=== PATIENT | male | born 1970 | race Two or more races ===

== ENCOUNTER 2021-10-22 21:16 | Inpatient (IN) ==
[~2021-10-22 21:16] MED LIST: NITROGLYCERIN SL 0.4 MG TABLET SL ONE
[2021-10-22] MEDS ORDERED: TICAGRELOR 90 MG TABLET PO STA (21:18)
[2021-10-22] MEDS ORDERED: HEPARIN 5,000 UNIT/1 ML VIAL IV ONE (21:18)
[2021-10-22] MEDS ORDERED: MORPHINE 2 MG/1 ML SYRINGE ONE (21:21)
[2021-10-22] MEDS ORDERED: NITROGLYCERIN DRIP 50 MG/250 ML BOTTLE IV ONE (21:21)
[2021-10-22] MEDS ORDERED: HEPARIN 5,000 UNIT/1 ML VIAL ONE (21:21)
[2021-10-22] MEDS: MORPHINE 2 MG/1 ML SYRINGE IV PRN ×2 (21:26→21:32)
[2021-10-22] MEDS ORDERED: NITROGLYCERIN DRIP 50 MG/250 ML BOTTLE IV SCH (21:30)
[2021-10-22 21:37] LABS: Basophils # 0.1 10*3/uL (0.0-0.2); Basophils % 0.6 % (0.0-0.8); Eosinophils # 0.6 10*3/uL (0.0-0.87); Eosinophils % 4.4 % (0.00-10.9); Hematocrit 44.9 VOL% (42.0-52.0); Hemoglobin 15.5 GM/DL (14.0-18.0); Immature Granulocytes % 0.5 %; Immature Granulocytes Absolute 0.07 #; Lymphocytes # 4.3 10*3/uL (1.4-4.0); Lymphocytes % 32.8 % (21.2-54.2); Mean Corpuscular HGB Conc 34.5 GM/DL (32-36); Mean Corpuscular Volume 94.7 FL (87-102); Mean Platelet Volume 11.7 FL (9.6-12.0); Monocytes % 9.9 % (1.7-12.7); Neutrophils % 51.8 % (38.7-73.9); Platelet Count 256 T/CUMM (130-400); Red Blood Count 4.74 MC/CUMM (3.8-5.5); Red Cell Distribution Width 11.4 % (9.3-17.3); White Blood Count 13.1 T/CUMM (4-12)
[2021-10-22] MEDS ORDERED: MIDAZOLAM 2 MG/2 ML VIAL ONE (21:43)
[2021-10-22] MEDS ORDERED: fentaNYL 100 MCG/2 ML VIAL ONE (21:43)
[2021-10-22] MEDS ORDERED: LIDOCAINE 1% 20 ML VIAL ONE (21:43)
[2021-10-22 21:46] LABS: INR 0.9; PT Patient Result 10.4 SECS (10.5-12.0)
[2021-10-22] MEDS ORDERED: ENOXAPARIN 60 MG/0.6 ML SYRINGE ONE (21:59)
[2021-10-22] MEDS ORDERED: EPTIFIBATIDE 75 MG/100 ML BOTTLE IV SCH (22:01)
[2021-10-22 22:11] LABS: Bilirubin,Total 0.4 MG/DL (0.20-1.00); Calcium 9.3 MG/DL (8.5-10.1); Osmolality,Calculated 287.5 MOS/KG (273-304); Potassium 4.6 MMOL/L (3.5-5.1)
[2021-10-22] MEDS ORDERED: HYDROmorphone 2 MG/1 ML VIAL ONE (22:49)
[2021-10-22] MEDS ORDERED: ZALEPLON 5 MG CAPSULE PO PRN (23:00)
[2021-10-22] MEDS ORDERED: GLUCAGON 1 MG VIAL IM PRN (23:00)
[2021-10-22] MEDS ORDERED: NITROGLYCERIN SL 0.4 MG TABLET SL PRN (23:00)
[2021-10-22] MEDS ORDERED: SODIUM CHLORIDE 0.9% 1,000 ML IV SCH (23:00)
[2021-10-22] MEDS ORDERED: ACETAMINOPHEN 325 MG TABLET PO PRN (23:00)
[2021-10-22] MEDS ORDERED: ONDANSETRON 4 MG/2 ML VIAL IV PRN (23:00)
[2021-10-22] MEDS ORDERED: ALUMINUM/MAGNES/SIMETH MAX STR 30 ML UDCUP PO PRN (23:13)
[2021-10-22] MEDS ORDERED: DEXTROSE 50% 25 GM/50 ML SYRINGE IV PRN (23:24)
[2021-10-23] MEDS: HYDROmorphone 2 MG/1 ML VIAL IV SCH ×4 (01:29→07:20)
[2021-10-23 05:38] LABS: Basophils # 0.1 10*3/uL (0.0-0.2); Basophils % 0.6 % (0.0-0.8); Eosinophils # 0.2 10*3/uL (0.0-0.87); Eosinophils % 1.5 % (0.00-10.9); Hematocrit 40.4 VOL% (42.0-52.0); Hemoglobin 14.1 GM/DL (14.0-18.0); Immature Granulocytes % 0.4 %; Immature Granulocytes Absolute 0.05 #; Lymphocytes # 3.1 10*3/uL (1.4-4.0); Lymphocytes % 26.2 % (21.2-54.2); Mean Corpuscular HGB Conc 34.9 GM/DL (32-36); Mean Corpuscular Volume 96.9 FL (87-102); Mean Platelet Volume 12.5 FL (9.6-12.0); Monocytes % 10.3 % (1.7-12.7); Platelet Count 225 T/CUMM (130-400); Red Blood Count 4.17 MC/CUMM (3.8-5.5); Red Cell Distribution Width 11.7 % (9.3-17.3); White Blood Count 11.7 T/CUMM (4-12)
[2021-10-23 07:23] LABS: Albumin 3.3 G/DL (3.4-5.0); Bilirubin,Total 1.4 MG/DL (0.20-1.00); CKMB % 7.6 %; Calcium 8.2 MG/DL (8.5-10.1); Osmolality,Calculated 281.8 MOS/KG (273-304); Potassium 4.2 MMOL/L (3.5-5.1); Risk Ratio 8.46; VLDL Cholesterol 175.6 MG/DL
[2021-10-23 07:28] LABS: High Sensitive Troponin I* 12311.1 ng/L (0-78)
[2021-10-23] MEDS: INSULIN REGULAR 100 UNIT/ML SUBCUT SCH ×4 (07:32→21:00)
[2021-10-23] MEDS: HYDROmorphone 2 MG/1 ML VIAL IV PRN ×3 (07:39→21:01)
[2021-10-23] MEDS: PANTOPRAZOLE 40 MG TABLET PO SCH (08:26)
[2021-10-23] MEDS: carvediloL 6.25 MG TABLET PO SCH ×2 (08:26→21:01)
[2021-10-23] MEDS: lisinopriL 10 MG TABLET PO SCH (08:26)
[2021-10-23] MEDS: ASPIRIN EC 81 MG TABLET PO SCH (08:26)
[2021-10-23] MEDS ORDERED: CLOPIDOGREL 300 MG TABLET PO ONE (08:46)
[2021-10-23] MEDS ORDERED: lisinopriL 10 MG TABLET PO SCH (09:00)
[2021-10-23] MEDS ORDERED: TICAGRELOR 90 MG TABLET PO SCH (09:00)
[2021-10-23 10:12] LABS: Barbiturates Screen,Urine Negative (Negative); Benzodiazepines Screen,Urine Positive (Negative); Cannabinoid Screen,Urine Negative (Negative); Opiate Screen,Urine Positive (Negative); Phencyclidine Screen,Urine Negative (Negative)
[2021-10-23] MEDS: glyBURIDE 5 MG TABLET PO SCH (16:28)
[2021-10-23] MEDS: ROSUVASTATIN 20 MG TABLET PO SCH (21:01)
[2021-10-24 03:03] LABS: Basophils # 0.1 10*3/uL (0.0-0.2); Basophils % 0.6 % (0.0-0.8); Eosinophils # 0.4 10*3/uL (0.0-0.87); Eosinophils % 3.8 % (0.00-10.9); Hematocrit 40.2 VOL% (42.0-52.0); Hemoglobin 13.8 GM/DL (14.0-18.0); Immature Granulocytes % 0.5 %; Immature Granulocytes Absolute 0.06 #; Lymphocytes # 2.7 10*3/uL (1.4-4.0); Lymphocytes % 23.9 % (21.2-54.2); Mean Corpuscular HGB Conc 34.3 GM/DL (32-36); Mean Corpuscular Volume 96.2 FL (87-102); Mean Platelet Volume 11.4 FL (9.6-12.0); Monocytes % 11.6 % (1.7-12.7); Neutrophils % 59.6 % (38.7-73.9); Platelet Count 192 T/CUMM (130-400); Red Blood Count 4.18 MC/CUMM (3.8-5.5); Red Cell Distribution Width 11.3 % (9.3-17.3); White Blood Count 11.2 T/CUMM (4-12)
[2021-10-24 03:20] LABS: Calcium 8.1 MG/DL (8.5-10.1); Potassium 4.2 MMOL/L (3.5-5.1)
[2021-10-24] MEDS: INSULIN REGULAR 100 UNIT/ML SUBCUT SCH ×3 (07:58→16:42)
[2021-10-24] MEDS: glyBURIDE 5 MG TABLET PO SCH ×2 (07:59→16:42)
[2021-10-24] MEDS: carvediloL 6.25 MG TABLET PO SCH ×2 (08:00→22:46)
[2021-10-24] MEDS: ASPIRIN EC 81 MG TABLET PO SCH (08:00)
[2021-10-24] MEDS: CLOPIDOGREL 75 MG TABLET PO SCH (08:00)
[2021-10-24] MEDS: PANTOPRAZOLE 40 MG TABLET PO SCH (08:01)
[2021-10-24] MEDS: lisinopriL 10 MG TABLET PO SCH (08:01)
[2021-10-24] MEDS: MAGNESIUM CHLORIDE 64 MG TABLET PO SCH ×2 (08:03→22:45)
[2021-10-24] MEDS ORDERED: FUROSEMIDE 20 MG TABLET PO ONE (08:50)
[2021-10-24] MEDS: metFORMIN 500 MG TABLET PO SCH (16:42)
[2021-10-24] MEDS: ROSUVASTATIN 20 MG TABLET PO SCH (22:45)
[2021-10-25 06:38] LABS: Basophils # 0.1 10*3/uL (0.0-0.2); Basophils % 0.5 % (0.0-0.8); Eosinophils # 0.4 10*3/uL (0.0-0.87); Hematocrit 40.4 VOL% (42.0-52.0); Hemoglobin 13.6 GM/DL (14.0-18.0); Immature Granulocytes % 0.7 %; Immature Granulocytes Absolute 0.07 #; Lymphocytes # 2.8 10*3/uL (1.4-4.0); Lymphocytes % 25.8 % (21.2-54.2); Mean Corpuscular HGB Conc 33.7 GM/DL (32-36); Mean Corpuscular Volume 96.4 FL (87-102); Mean Platelet Volume 12.4 FL (9.6-12.0); Monocytes % 11.7 % (1.7-12.7); Neutrophils % 57.3 % (38.7-73.9); Platelet Count 210 T/CUMM (130-400); Red Blood Count 4.19 MC/CUMM (3.8-5.5); Red Cell Distribution Width 11.3 % (9.3-17.3); White Blood Count 10.7 T/CUMM (4-12)
[2021-10-25 06:54] LABS: Calcium 8.7 MG/DL (8.5-10.1); Osmolality,Calculated 275.2 MOS/KG (273-304); Potassium 3.7 MMOL/L (3.5-5.1)
[2021-10-25] MEDS: INSULIN REGULAR 100 UNIT/ML SUBCUT SCH ×2 (07:06→08:40)
[2021-10-25] MEDS: lisinopriL 10 MG TABLET PO SCH (08:40)
[2021-10-25] MEDS: CLOPIDOGREL 75 MG TABLET PO SCH (08:40)
[2021-10-25] MEDS: ASPIRIN EC 81 MG TABLET PO SCH (08:40)
[2021-10-25] MEDS: carvediloL 6.25 MG TABLET PO SCH (08:40)
[2021-10-25] MEDS: PANTOPRAZOLE 40 MG TABLET PO SCH (08:40)
[2021-10-25] MEDS: MAGNESIUM CHLORIDE 64 MG TABLET PO SCH (08:40)
[2021-10-25] MEDS: metFORMIN 500 MG TABLET PO SCH (08:40)
[2021-10-25] MEDS: glyBURIDE 5 MG TABLET PO SCH (08:40)
[2021-10-25 08:41] VITALS: BP 110/74
== END 2021-10-25 11:39 | disposition home or self-care (01) | DRG 247 ==
LOC: N.ED 21:16 → N.EDINP 21:44 → N.ICU 23:42 → N.TELES 10-24 18:27
PROVIDERS: ADMIT Internal Medicine Cardiovascular Disease; ATTEND Internal Medicine Cardiovascular Disease
PROC: CLCCHCL (ICD-10-PCS; 2021-10-22 22:00)